=== PATIENT | female | born 1945 | race Caucasian/White ===

== ENCOUNTER 2018-01-13 18:16 | Emergency (ER) | payer OTHER ==
[~2018-01-13] VITALS: Ht 157.5 cm; Wt 63.5 kg
[~2018-01-13 18:16] MED LIST: AMLO5 PO; ELIQUIS5 MG PO; GABA100 PO; HYDR1TAB94 PO; IBRANCE100 MG PO; OXYACE5T PO; Percocet 5-3251 EACH PO
[2018-01-13] MEDS ORDERED: XGEVA120 MG/1.7 SQ (18:24)
[2018-01-13] MEDS ORDERED: Faslodex250 MG/5 M (18:24)
[2018-01-13 19:37] LABS: BASOPHILS ABSOLUTE AUTO 0.03 K/mm3 (0.00-0.23); BASOPHILS PERCENT AUTO 1 % (0-2); EOSINOPHILS ABSOLUTE AUTO 0.01 K/mm3 (0.00-0.68); EOSINOPHILS PERCENT AUTO 0 % (0-6); Hematocrit 38.1 % (33.0-51.0); Hemoglobin 13.4 g/dL (11.5-16.0); Mean Corpuscular HGB 35.4 pg (26.0-34.0); Mean Corpuscular HGB Conc 35.2 g/dL (31.5-36.5); Mean Corpuscular Volume 101 fL (80-100); Mean Platelet Volume 9.2 fL (9.1-12.4); Platelet Count 241 K/mm3 (150-400); RDW Coefficient Variation 13.4 % (11.7-14.2); RDW Standard Deviation 49.2 fL (35.1-46.3); Red Blood Cell Count 3.79 M/mm3 (3.80-5.20); White Blood Cell Count 5.57 K/mm3 (4.00-11.30)
[2018-01-13 19:42] LABS: IMMATURE GRAN ABSOLUTE AUTO 0.04 K/mm3 (0.00-0.10); IMMATURE GRAN PERCENT AUTO 1 % (0-1); LYMPHOCYTES PERCENT AUTO 11 % (21-46); MONOCYTES ABSOLUTE AUTO 0.29 K/mm3 (0.16-1.47); MONOCYTES PERCENT AUTO 5 % (4-13); NEUTROPHILS PERCENT AUTO 83 % (41-73)
[2018-01-13 19:43] LABS: Alanine Aminotransfer (ALT/SGP 18 U/L (12-78); Albumin, Blood 3.8 g/dL (3.4-5.0); Albumin/Globulin Ratio 1.1 (0.8-1.8); Alk Phos 68 U/L (50-136); Anion Gap 10 mmol/L (6-16); Aspartate Aminotrans (AST/SGOT 16 U/L (12-37); Bilirubin, Total 0.9 mg/dL (0.1-1.0); Blood Urea Nitrogen 17 mg/dL (8-24); Bun/Creatinine Ratio 20.2 (12.0-20.0); CO2, Blood 24 mmol/L (21-32); Calcium, Blood 8.8 mg/dL (8.5-10.1); Chloride, Blood 105 mmol/L (98-108); Creatinine, Blood 0.84 mg/dL (0.40-1.00); Globulin, Blood 3.4 g/dL (2.2-4.0); Glomerular Filtration Rate >60 (60-); Glucose, Blood 120 mg/dL (70-99); Potassium, Blood 3.7 mmol/L (3.5-5.5); Sodium, Blood 139 mmol/L (136-145); Total Protein, Blood 7.2 g/dL (6.4-8.2)
[2018-01-13] MEDS ORDERED: Flagyl500 MG PO (20:13)
[2018-01-13] MEDS ORDERED: Cipro500 MG PO (20:13)
== END 2018-01-13 20:33 | disposition home or self-care (01) ==
LOC: ER 18:16
PROVIDERS: Physician Assistant
DX: K52.9 Noninfective gastroenteritis and colitis, unspecified (principal); Z88.1 Allergy status to other antibiotic agents; Z79.899 Other long term (current) drug therapy; Z79.891 Long term (current) use of opiate analgesic; Z85.3 Personal history of malignant neoplasm of breast
CPT/HCPCS: 36415; 74176; 80053; 85025; 99284-25

== ENCOUNTER → 2018-08-19 | Outpatient (CLI) | payer OTHER ==
[~2018-08-19] MED LIST changes: +Cipro500 MG PO; +Faslodex250 MG/5 M; +Flagyl500 MG PO; +XGEVA120 MG/1.7 SQ
[2018-08-19 13:35] LABS: Hematocrit 38.8 % (33.0-51.0); Hemoglobin 13.8 g/dL (11.5-16.0); Mean Corpuscular HGB 34.2 pg (26.0-34.0); Mean Corpuscular HGB Conc 35.6 g/dL (31.5-36.5); Mean Corpuscular Volume 96 fL (80-100); Mean Platelet Volume 8.9 fL (9.1-12.4); Platelet Count 145 K/mm3 (150-400); RDW Coefficient Variation 15.2 % (11.7-14.2); RDW Standard Deviation 53.5 fL (35.1-46.3); Red Blood Cell Count 4.04 M/mm3 (3.80-5.20); White Blood Cell Count 2.95 K/mm3 (4.00-11.30)
[2018-08-19 13:43] LABS: Albumin, Blood 3.7 g/dL (3.4-5.0); Albumin/Globulin Ratio 0.9 (0.8-1.8); Bilirubin, Total 0.5 mg/dL (0.1-1.0); Calcium, Blood 8.7 mg/dL (8.5-10.1); Creatinine, Blood 1.09 mg/dL (0.40-1.00); Globulin, Blood 3.9 g/dL (2.2-4.0); Potassium, Blood 3.8 mmol/L (3.5-5.5); Total Protein, Blood 7.6 g/dL (6.4-8.2)
[2018-08-19 14:08] LABS: BAND PERCENT MAN 12 % (0-8); BASOPHILS ABSOLUTE MAN 0.05 K/mm3 (0.00-0.23); BASOPHILS PERCENT MAN 2 % (0-2); EOSINOPHILS PERCENT MAN 0 % (0-6); LYMPHOCYTES ABSOLUTE MAN 0.97 K/mm3 (0.84-5.20); LYMPHOCYTES PERCENT MAN 33 % (21-46); METAMYELOCYTE ABSOLUTE MAN 0.23 K/mm3 (0.00-0.00); METAMYELOCYTE PERCENT MAN 8 % (0-0); MONOCYTES ABSOLUTE MAN 0.02 K/mm3 (0.16-1.47); MONOCYTES PERCENT MAN 1 % (4-13); MYELOCYTE ABSOLUTE MAN 0.02 K/mm3 (0.00-0.00); MYELOCYTE PERCENT MAN 1 % (0-0); NEUTROPHILS ABSOLUTE MAN 1.62 K/mm3 (1.96-9.15); SEG NEUTROPHILS PERCENT MAN 43 % (41-73); TOTAL CELLS COUNTED 100
== END ==
LOC: LAB EV 13:23 → LAB SHORT 13:23
PROVIDERS: General Practice
DX: R05 Cough (principal)
CPT/HCPCS: 80053; 85025

== ENCOUNTER 2020-07-17 07:13 | Day surgery (SDC) | payer OTHER ==
[~2020-07-17] VITALS: Ht 160 cm; Wt 68.0 kg
--- NOTE | 2020-07-17 08:22 | NUR ---
07/17/20 0822 Ernestina Ivey SITE CHECK. INTRASCALENE BLOCK PERFORMED BY DR DEXTER ON THE LEFT SIDE. COMPLETED [id number]
--- NOTE | 2020-07-17 09:15 | NUR ---
07/17/20 0915 Ayanna Hernandez EPI 1GM ADDED TO THE FIRST 3 BAGS OF LR USED FOR IRRIGATION DURING SURGERY.
--- NOTE | 2020-07-17 10:30 | NUR ---
07/17/20 1030 Mey Hernandez NAUSEA RESOLVED. PT TAKEN TO THE RESTROOM VIA WHEELCHAIR TO VOID. VSS. PT BACK IN CHAIR NOW WITH WARM BLANKETS AND POLAR UNIT RUNNING. PT TOLERATING PO FLUIDS WELL. PT DENIES PAIN. PT DEMONSTRATED INCENTIVE SPIROMETRY X3 AFTER NURSE PROVIDED VERBAL TEACHING. PT'S NOTIFIED OF PT'S PROGRESS.
== END 2020-07-17 11:00 | disposition home or self-care (01) ==
LOC: ORSCSDS 07:13
PROVIDERS: Orthopaedic Surgery
PROC: 0RNK4ZZ Release Left Shoulder Joint, Percutaneous Endoscopic Approach (ICD-10-PCS; principal; 2020-07-17 08:30)
PROC: 0LS44ZZ Reposition Left Upper Arm Tendon, Percutaneous Endoscopic Approach (ICD-10-PCS; principal; 2020-07-17 08:30)
PROC: 0LQ24ZZ Repair Left Shoulder Tendon, Percutaneous Endoscopic Approach (ICD-10-PCS; principal; 2020-07-17 08:30)
DX: M75.122 Complete rotator cuff tear or rupture of left shoulder, not specified as traumatic (principal); M75.22 Bicipital tendinitis, left shoulder; M75.42 Impingement syndrome of left shoulder; I10 Essential (primary) hypertension; Z79.899 Other long term (current) drug therapy
CPT/HCPCS: C1713; J0171; J0690; J1100; J1885; J2250; J2405; J2704; J2710; J2765; J3010; J7120

== ENCOUNTER → 2021-12-10 | Outpatient (CLI) | payer OTHER | LOC: LAB SHORT 15:26 → PLD 15:26 | DX: N90.89 Other specified noninflammatory disorders of vulva and perineum (principal) | CPT/HCPCS: 88305 ==

== ENCOUNTER → 2022-01-13 | Outpatient (CLI) | payer OTHER | END | disposition home or self-care (01) | LOC: LAB SHORT 14:54 → PLD 14:54 | DX: D48.5 Neoplasm of uncertain behavior of skin (principal) | CPT/HCPCS: 88305 ==

== ENCOUNTER 2024-01-31 00:24 | Observation (INO) | payer OTHER ==
[~2024-01-31] VITALS: Ht 162.6 cm; Wt 61.0 kg
[2024-01-31 01:02] LABS: BASOPHILS ABSOLUTE AUTO 0.04 K/mm3 (0.00-0.23); BASOPHILS PERCENT AUTO 1 % (0-2); EOSINOPHILS ABSOLUTE AUTO 0.17 K/mm3 (0.00-0.68); EOSINOPHILS PERCENT AUTO 2 % (0-6); Hematocrit 37.6 % (33.0-51.0); Hemoglobin 13.2 g/dL (11.5-16.0); IMMATURE GRAN ABSOLUTE AUTO 0.03 K/mm3 (0.00-0.10); IMMATURE GRAN PERCENT AUTO 0 % (0-1); LYMPHOCYTES ABSOLUTE AUTO 1.44 K/mm3 (0.84-5.20); LYMPHOCYTES PERCENT AUTO 21 % (21-46); MONOCYTES ABSOLUTE AUTO 0.67 K/mm3 (0.16-1.47); MONOCYTES PERCENT AUTO 10 % (4-13); Mean Corpuscular HGB 31.4 pg (26.0-34.0); Mean Corpuscular HGB Conc 35.1 g/dL (31.5-36.5); Mean Corpuscular Volume 90 fL (80-100); Mean Platelet Volume 8.9 fL (9.1-12.4); NEUTROPHILS ABSOLUTE AUTO 4.66 K/mm3 (1.96-9.15); NEUTROPHILS PERCENT AUTO 67 % (41-73); Platelet Count 214 K/mm3 (150-400); RDW Coefficient Variation 12.4 % (11.7-14.2); RDW Standard Deviation 41.1 fL (35.1-46.3); White Blood Cell Count 7.01 K/mm3 (4.00-11.30)
[2024-01-31 01:23] LABS: Albumin, Blood 3.3 g/dL (3.4-5.0); Bilirubin, Total 0.5 mg/dL (0.1-1.0); Bun/Creatinine Ratio 40.6 (12.0-20.0); Calcium, Blood 8.8 mg/dL (8.5-10.1); Creatinine, Blood 0.79 mg/dL (0.40-1.00); Globulin, Blood 3.4 g/dL (2.2-4.0); Potassium, Blood 3.5 mmol/L (3.5-5.5); Total Protein, Blood 6.7 g/dL (6.4-8.2)
[2024-01-31] MEDS ORDERED: Morphine Sulfate 4 MG/1 ML Injection IV ONE (01:35)
[2024-01-31 03:44] LABS: BASOPHILS ABSOLUTE AUTO 0.04 K/mm3 (0.00-0.23); BASOPHILS PERCENT AUTO 1 % (0-2); EOSINOPHILS PERCENT AUTO 1 % (0-6); Hematocrit 37.5 % (33.0-51.0); Hemoglobin 13.2 g/dL (11.5-16.0); IMMATURE GRAN ABSOLUTE AUTO 0.05 K/mm3 (0.00-0.10); IMMATURE GRAN PERCENT AUTO 1 % (0-1); LYMPHOCYTES ABSOLUTE AUTO 1.14 K/mm3 (0.84-5.20); LYMPHOCYTES PERCENT AUTO 15 % (21-46); MONOCYTES ABSOLUTE AUTO 0.62 K/mm3 (0.16-1.47); MONOCYTES PERCENT AUTO 8 % (4-13); Mean Corpuscular HGB 31.7 pg (26.0-34.0); Mean Corpuscular HGB Conc 35.2 g/dL (31.5-36.5); Mean Corpuscular Volume 90 fL (80-100); Mean Platelet Volume 8.9 fL (9.1-12.4); NEUTROPHILS ABSOLUTE AUTO 5.85 K/mm3 (1.96-9.15); NEUTROPHILS PERCENT AUTO 75 % (41-73); Platelet Count 210 K/mm3 (150-400); RDW Coefficient Variation 12.6 % (11.7-14.2); RDW Standard Deviation 41.3 fL (35.1-46.3); Red Blood Cell Count 4.16 M/mm3 (3.80-5.20)
[2024-01-31 04:02] LABS: Bun/Creatinine Ratio 43.4 (12.0-20.0); Calcium, Blood 8.4 mg/dL (8.5-10.1); Creatinine, Blood 0.71 mg/dL (0.40-1.00)
[2024-01-31] MEDS ORDERED: Ibuprofen 400 MG Tab PO PRN (04:25)
[2024-01-31 08:35] VITALS: BP 131/71
[2024-01-31 08:52] VITALS: BP 152/90
[2024-01-31] MEDS ORDERED: Enoxaparin 40 MG/0.4 ML SYR SC SCH (09:00)
[2024-01-31] MEDS ORDERED: IBUP600 PO (10:16)
[2024-01-31 14:57] VITALS: BP 131/76
[2024-01-31] MEDS ORDERED: ASPI81CH PO (15:25)
--- NOTE | 2024-01-31 16:22 | NUR ---
DISCHARGE SUMMARY PATIENT DISCHARGED HOME THIS SHIFT, TO DRIVE. IV REMOVED WITHOUT COMPLICATION. MILD SHOULDER/NECK PAIN RELIEVED WITH ONE DOSE ADVIL PER SEP. DISCHARGE PACKET GIVEN AND REVIEWED, VERBALIZED UNDERSTANDING. NO NEW MEDS PRESCRIBED.
== END 2024-01-31 16:58 | disposition home or self-care (01) ==
LOC: ER 00:24 → ERHOLD 00:25 → MEDS 08:28
PROVIDERS: Family Medicine; Student in an Organized Health Care Education/Training Program; ADMIT Internal Medicine
DX: R07.89 Other chest pain (principal); I10 Essential (primary) hypertension; D64.9 Anemia, unspecified; I25.10 Atherosclerotic heart disease of native coronary artery without angina pectoris; E78.5 Hyperlipidemia, unspecified; M81.0 Age-related osteoporosis without current pathological fracture; M79.18 Myalgia, other site; Z86.73 Personal history of transient ischemic attack (TIA), and cerebral infarction without residual deficits; Z85.3 Personal history of malignant neoplasm of breast; Z88.1 Allergy status to other antibiotic agents; Z88.2 Allergy status to sulfonamides; Z79.899 Other long term (current) drug therapy
CPT/HCPCS: 36415; 71046; 80048; 80053; 84484; 85025; 85379; 93005; 93010; 96372-59; 96374; 99285-25; A9270; G0378; J1650; J2270